=== PATIENT | male | born 1985 | race Asian ===

== ENCOUNTER 2017-04-09 22:49 | Emergency (ER) | payer OTHER ==
[~2017-04-09] VITALS: Ht 180.3 cm; Wt 83.9 kg
[2017-04-09 23:02] VITALS: BP 113/61
== END 2017-04-09 23:35 | disposition left against medical advice (07) ==
LOC: ED 22:49
DX: F10.129 Alcohol abuse with intoxication, unspecified (principal); R41.82 Altered mental status, unspecified
CPT/HCPCS: G0480; J1200; J1630; Q0162

== ENCOUNTER 2017-04-10 00:19 | Emergency (ER) | payer OTHER ==
[2017-04-10 11:34] VITALS: BP 105/74
== END 2017-04-10 11:34 | disposition home or self-care (01) ==
LOC: ED 00:19
DX: T51.91XA Toxic effect of unspecified alcohol, accidental (unintentional), initial encounter (principal); Y92.89 Other specified places as the place of occurrence of the external cause
CPT/HCPCS: G0480